=== PATIENT | male | born 1985 | race Two or more races ===

== ENCOUNTER 2017-08-27 02:44 | Emergency (ER) | payer OTHER ==
[2017-08-27] MEDS ORDERED: gentamicin in saline, iso-osm 80 MG/50 ML premix IV ONE ×2 (03:00→03:05)
[2017-08-27] MEDS ORDERED: fentaNYL/PF 50MCG/1 ML 2ML syringe IV ONE ×2 (03:00→03:05)
[2017-08-27] MEDS ORDERED: ondansetron/PF 4mg/2ml inj IM ONE (03:00)
[2017-08-27] MEDS ORDERED: TETanus/Pertussis (Acell)/Diphther VAC/PF (Tdap-Adult) 0.5ml syringe IMVAC ONE (03:00)
[2017-08-27] MEDS ORDERED: iohexol 300mg/ml 100ml inj. ONE (03:04)
[2017-08-27] MEDS ORDERED: ondansetron/PF 4mg/2ml inj IV ONE (03:05)
[2017-08-27] MEDS ORDERED: ceFAZolin 1000mg inj IV ONE (03:05)
[2017-08-27] MEDS ORDERED: normal saline 1000ML IV soln IVB ONE (03:05)
[2017-08-27] MEDS ORDERED: cefazolin/dext.iso 2gm/50ml 50 ML IV ONE (03:07)
[2017-08-27] MEDS ORDERED: gentamicin 40 MG/1 ML inj ONE (03:07)
[2017-08-27 03:17] LABS: HEMATOCRIT 44.1 % (42.0-52.0); HEMOGLOBIN 15.1 g/dl (14.0-17.9); MEAN CORPUSCULAR HEMOGLOBIN 32.8 PG (27.0-31.0); MEAN CORPUSCULAR HGB CONC 34.3 % (33.0-36.5); MEAN CORPUSCULAR VOLUME 95.7 FL (78-98); MEAN PLATELET VOLUME 8.3 FL (7.4-10.4); PLATELET COUNT 285 X10'3 (140-440); RED CELL DISTRIBUTION WIDTH 13.8 % (11.5-14.5); WHITE BLOOD COUNT 9.4 X10'3 (4.5-11.0)
[2017-08-27 03:24] LABS: PARTIAL THROMBOPLASTIN TIME 23 SECONDS (22-32); PROTHROMBIN TIME 10.3 SECONDS (9.0-12.0)
[2017-08-27] MEDS ORDERED: fentaNYL/PF 50MCG/1 ML 2ML syringe ONE ×2 (03:40→03:46)
[2017-08-27 03:48] LABS: ALANINE AMINOTRANSFERASE 45 U/L (12-78); ALBUMIN 4.4 G/DL (3.4-5.0); ALBUMIN/GLOBULIN RATIO 1.2 (1.1-1.5); ALKALINE PHOSPHATASE 88 IU/L (46-116); ANION GAP 21 (8-16); ASPARTATE AMINO TRANSFERASE 24 U/L (10-37); BILIRUBIN,TOTAL 0.4 MG/DL (0.1-1.0); BLOOD UREA NITROGEN 13 MG/DL (7-18); BUN/CREATININE RATIO 8.7 (5.4-32.0); CALCIUM 9.3 MG/DL (8.5-10.1); CHLORIDE 100 MMOL/L (99-107); CKMB RELATIVE INDEX 0.4 RATIO (0-2.5); CREATINE KINASE 134 U/L (39-308); ETHANOL < 0.010 GM/DL (0.0-0.010); GLUCOSE 151 MG/DL (70-104); LIPASE 103 U/L (73-393); SODIUM 141 MMOL/L (135-145); TOTAL CARBON DIOXIDE 20.4 MMOL/L (24-32); TROPONIN I < 0.04 NG/ML (0.0-0.05); eGFR 55 ML/MIN
[2017-08-27 07:29] LABS: EOSINOPHILS % (MANUAL) 4 % (0-6); LYMPHOCYTES % (MANUAL) 47 % (21-51); MONOCYTES % (MANUAL) 1 % (2-12); NEUTROPHILS % (MANUAL) 48 % (42-75); PLATELET ESTIMATE NORMAL; TOTAL CELLS COUNTED 100
[2017-08-27] MEDS ORDERED: cefazolin 1gm/NS 100mL 100 ML IV SCH (08:00)
[2017-08-28 04:53] VITALS: BP 103/70
== END 2017-08-27 06:07 | disposition short-term general hospital (02) ==
LOC: ER 02:45
DX: S06.0X9A Concussion with loss of consciousness of unspecified duration, initial encounter (principal); S27.2XXA Traumatic hemopneumothorax, initial encounter; S31.119A Laceration without foreign body of abdominal wall, unspecified quadrant without penetration into peritoneal cavity, initial encounter; S01.00XA Unspecified open wound of scalp, initial encounter; E87.6 Hypokalemia; R57.1 Hypovolemic shock; Y08.89XA Assault by other specified means, initial encounter; Y93.89 Activity, other specified; Y92.89 Other specified places as the place of occurrence of the external cause; Y99.8 Other external cause status
CPT/HCPCS: 32551; 36415; 36430; 71045; 71048; 80053; 80320; 82550; 82553; 83690; 83874; 84484; 85007; 85027; 85610; 85730; 86885; 86900; 86901; 86920; 90471; 90715; 96365; 96368; 96375; 99291; J0690; J1580; J2405; J3010; J7040; P9016; Q9967; 96374